=== PATIENT | female | born 1985 | race Caucasian/White ===

== ENCOUNTER 2020-08-10 17:13 | Emergency (ER) | payer OTHER, MEDICAID ==
[~2020-08-10] VITALS: Ht 175.3 cm; Wt 59.1 kg
[2020-08-10 17:42] VITALS: BP 128/74
[2020-08-10] MEDS ORDERED: SERT100T12 PO (17:47)
== END 2020-08-10 17:35 | disposition home or self-care (01) ==
LOC: EMS 17:13 → EEVIPCON 17:13 → EMS 17:35
DX: R51.9 Headache, unspecified (principal); R19.7 Diarrhea, unspecified; R09.81 Nasal congestion; Z20.828 Contact with and (suspected) exposure to other viral communicable diseases
CPT/HCPCS: 99283; U0003